=== PATIENT | male | born 1950 | race Caucasian/White ===

== ENCOUNTER 2017-06-08 18:59 | Emergency (ER) | payer MEDICARE ==
[~2017-06-08] VITALS: Ht 176.5 cm; Wt 85.7 kg
--- NOTE | ~2017-06-08 | CT4 ---
[facility] A Service of [facility] RADIOLOGY TEXT RESULTS PATIENT: FRANKIE HAWTHORNE LOCATION: [facility] : 48 UNIT #: [id number] AGE: [address]: Duarte Crockett MD SEX: M ORDER DR: [id number] [facility]. [place], [place] [address] [id number] MR#: [id number] #: [id number] NAME: FRANKIE HAWTHORNE : 1950 SEX: M STUDY DATE/TIME: 06/08/2017 22:14 UNIT: [facility] ROOM: STUDY DESCRIPTION: CT Abd and Pelv Wo Cont Attending Physician: Duarte Crockett M.D. Ordering Physician: Chapin Olivo M.D. Primary Care Physician: Chapin Akers M.D. MEDICAL IMAGING REPORT This report is preliminary unless electronic signature is present EXAM CT abdomen and pelvis without contrast 06/08/2017 HISTORY 67-year-old male with abdominal pain beginning today. COMPARISON CT abdomen and pelvis 02/19/2014 TECHNIQUE Helical scan performed through the abdomen and pelvis without oral or IV contrast. Coronal and sagittal reformatted images. This CT exam was performed with one or more of the following radiation dose reduction techniques: Automatic exposure control, adjustment of mA and/or kV according to patient size, and iterative reconstruction. FINDINGS Visualized lung bases demonstrate mild atelectasis/infiltrate in the left lower lobe. Early pneumonia not excluded. The liver, spleen, pancreas, both adrenal glands, and both kidneys are within expected limits. No urinary tract stones or hydronephrosis. Cholelithiasis is again noted. There is also suspected choledocholithiasis. Abdominal aorta normal in course and caliber. Small bowel unremarkable without obstruction. Appendix is normal. There is descending and sigmoid colonic diverticulosis. There is some equivocal haziness around the sigmoid colonic diverticula, which could represent very early acute diverticulitis. No free air or abscess. Urinary bladder and prostate gland unremarkable. No free pelvic fluid. No acute bony abnormality. IMPRESSION [facility] A Service of [facility] RADIOLOGY TEXT RESULTS PATIENT: FRANKIE HAWTHORNE LOCATION: [facility] : 48 UNIT #: [id number] AGE: [address]: Duarte Crockett MD SEX: M ORDER DR: 1. Descending and sigmoid colonic diverticulosis, with some equivocal hazy fat stranding around the sigmoid colonic diverticula. Early acute diverticulitis is not completely excluded. No free air or abscess. 2. Normal appendix. 3. Cholelithiasis with suspected choledocholithiasis. 4. Negative for urinary tract stones or hydronephrosis. 5. Left basilar atelectasis/infiltrate. Early pneumonia not excluded in the appropriate clinical setting. Dictated by... Lv Adame M.D. THIS IS AN ELECTRONICALLY VERIFIED REPORT Lv Adame M.D. at 06/09/2017 3:06 PM WAGNER/otto TD: 06/09/2017 11:20 JOB #: [id number] MEDICAL IMAGING REPORT Page 1 of 1 COPY
[~2017-06-08 18:59] MED LIST: GLUCOPHAGE XR500 MG PO; NEXIUM PO; ZYLOPRIM PO
[2017-06-08 19:52] LABS: BASOPHIL% 0.6 % (0-2.5); EOSINOPHIL# 0.1 X10e3 (0-0.7); EOSINOPHIL% 1.6 % (0.0-7.0); HEMATOCRIT 38.1 % (38.0-50.0); HEMOGLOBIN 12.2 gm/dL (13.0-16.0); LYMPHOCYTE# 0.7 X10e3 (1.0-3.5); LYMPHOCYTE% 9.4 % (17.0-45.0); MEAN CELL VOLUME 84.2 FL (83-96); MEAN PLATELET VOLUME 7.4 FL (6.5-11.5); MONOCYTE# 0.5 X10e3 (0-1.0); MONOCYTE% 6.7 % (3.0-12.0); NEUTROPHIL# 5.9 X10e3 (1.5-7.1); NEUTROPHIL% 81.7 % (40-75); PLATELET COUNT 180 X10e3 (140-420); RED BLOOD COUNT 4.53 X10e (3.90-5.60); RED CELL DISTRIBUTION WIDTH 17.6 % (11.0-15.5); WHITE BLOOD COUNT 7.3 X10e3 (4.0-10.5)
[2017-06-08 20:03] LABS: DIFF IND NO
[2017-06-08 20:20] LABS: ALBUMIN SERUM 3.9 g/dL (3.5-5.0); BILIRUBIN, DIRECT 0.2 mg/dL (0.0-0.2); BILIRUBIN,INDIRECT 0.7 mg/dL (0.0-0.9); BILIRUBIN,TOTAL 0.9 mg/dL (0.2-2.0); BUN/CREATININE RATIO 24.4; CALCIUM SERUM 9.8 mg/dL (8.4-10.2); CREATININE SERUM 2.5 mg/dL (0.6-1.4); GLOM FILT RATE Estimated 25.4 mL/min (>60); POTASSIUM 5.2 mmol/L (3.5-5.1); PROTEIN TOTAL SERUM 7.7 g/dL (6.0-8.3)
[2017-06-08 21:28] LABS: URINE SOURCE CATH
[2017-06-08 21:32] LABS: URINE APPEARANCE CLEAR; URINE BILIRUBIN NEG (NEG); URINE BLOOD 2+ (NEG); URINE COLOR YELLOW; URINE GLUCOSE NEG (NEG); URINE KETONE 1+ (NEG); URINE LEUKOCYTE ESTERASE NEG (NEG); URINE NITRATE NEG (NEG); URINE PROTEIN 3+ (NEG); URINE SPECIFIC GRAVITY 1.021 (1.003-1.035); URINE UROBILINOGEN 0.2 MG/DL (NEG)
[2017-06-08 21:34] LABS: URINE BACTERIA AUWI NEG (NEGATIVE); URINE SQUAMOUS EPITHELIAL CELL NONE SEEN /[HPF]; UWBCS1 AUWI 0-2 (0-5)
[2017-06-08 21:38] LABS: CULTURE INDICATED? NO
== END 2017-06-08 23:37 | disposition home or self-care (01) ==
LOC: CED 18:59
DX: K57.32 Diverticulitis of large intestine without perforation or abscess without bleeding (principal); E11.22 Type 2 diabetes mellitus with diabetic chronic kidney disease; N18.9 Chronic kidney disease, unspecified; F41.9 Anxiety disorder, unspecified; Z88.8 Allergy status to other drugs, medicaments and biological substances
CPT/HCPCS: 36415; 74176; 80048; 80076; 81003; 83690; 85025; 96361; 96374; 99284; J2405